=== PATIENT | female | born 1985 | race Two or more races ===

== ENCOUNTER 2019-12-23 22:41 | Emergency (ER) | payer MEDICAID ==
[~2019-12-23] VITALS: Ht 149.9 cm; Wt 52.4 kg
[2019-12-23 22:53] VITALS: Ht 149.9 cm; Wt 52.4 kg
[2019-12-24 00:36] VITALS: BP 124/80
== END 2019-12-24 00:36 | disposition home or self-care (01) ==
LOC: ED 22:41
DX: H60.02 Abscess of left external ear (principal)
CPT/HCPCS: J2001